=== PATIENT | female | born 1975 | race Caucasian/White ===

== ENCOUNTER 2016-08-29 21:10 | Emergency (ER) | payer MEDICAID ==
[2016-08-30 00:01] VITALS: BP 142/86
== END 2016-08-30 00:01 | disposition home or self-care (01) ==
LOC: ED 21:10
DX: J02.9 Acute pharyngitis, unspecified (principal)
CPT/HCPCS: J1885; J2930

== ENCOUNTER 2016-11-10 18:52 | Emergency (ER) | payer MEDICAID ==
[~2016-11-10] VITALS: Ht 162.6 cm; Wt 78.1 kg
[2016-11-10 20:59] VITALS: BP 129/89
== END 2016-11-10 20:59 | disposition home or self-care (01) ==
LOC: ED 18:52
DX: S39.012A Strain of muscle, fascia and tendon of lower back, initial encounter (principal); M54.41 Lumbago with sciatica, right side; X50.0XXA Overexertion from strenuous movement or load, initial encounter; Y93.89 Activity, other specified; Y99.8 Other external cause status; Y92.89 Other specified places as the place of occurrence of the external cause
CPT/HCPCS: J1885

== ENCOUNTER 2017-08-19 07:03 | Emergency (ER) | payer MEDICAID ==
[~2017-08-19] VITALS: Ht 160 cm; Wt 77.1 kg
[2017-08-19 07:08] VITALS: Ht 160 cm; Wt 77.1 kg
[2017-08-19 08:18] VITALS: BP 133/94
== END 2017-08-19 09:00 | disposition home or self-care (01) ==
LOC: ED 07:03
DX: J20.9 Acute bronchitis, unspecified (principal)